=== PATIENT | male | born 1955 | race Caucasian/White ===

== ENCOUNTER 2016-05-19 11:39 | Outpatient (CLI) ==
[2012-09-24 07:31] VITALS: TEMP 98.2
[2012-09-24 08:03] VITALS: BP 150/77
[2016-05-19 12:30] LABS: HEMATOCRIT 33.2 % (42.0-52.0); HEMOGLOBIN 10.8 g/dl (14.0-18.0); MEAN CORPUSCULAR HEMOGLOBIN 30.4 pg (27.0-31.0); MEAN CORPUSCULAR HGB CONC 32.5 (31.8-35.4); MEAN CORPUSCULAR VOLUME 93.5 fl (80.0-94.0); RED BLOOD COUNT 3.55 10^6/ul (4.70-6.10); WHITE BLOOD COUNT 6.87 K/ul (4.2-10.2)
[2016-05-19 12:47] LABS: BILIRUBIN,URINE Negative (NEGATIVE); KETONES,URINE Negative (NEGATIVE); LEUKOCYTE ESTERASE ,URINE Negative (NEGATIVE); NITRITE,URINE Negative (NEGATIVE); PROTEIN,URINE Negative (NEGATIVE); URINE, BLOOD Negative (NEGATIVE)
[2016-05-19 12:52] LABS: ADD URINE MICROSCOPIC NO
[2016-05-19 13:03] LABS: ALBUMIN/GLOBULIN RATIO 1.14; ANION GAP 16.1; BILIRUBIN,TOTAL 0.49 mg/dL (0.00-1.20); BUN/CREATININE RATIO 20.35; CALCIUM 9.3 mg/dL (8.2-10.2); CREATININE 2.8 mg/dL (0.60-1.10); MAGNESIUM 2.1 mg/dL (1.7-2.2); PHOSPHORUS 3.8 mg/dL (2.5-4.9); POTASSIUM 4.1 mmol/L (3.5-5.1); TOTAL PROTEIN 7.5 g/dL (6.4-8.2); URIC ACID 6.5 mg/dL (2.6-7.2)
[2016-05-20 06:12] LABS: URINE CREATINE 55.1 mg/dL (Not Estab.)
[2016-05-20 10:32] LABS: CHOL/HDL RATIO 5.2 (4.5-6.4)
== END 2016-05-19 11:40 | disposition home or self-care (01) ==
LOC: LAB 11:39
PROVIDERS: ATTEND Internal Medicine Cardiovascular Disease
DX: E78.5 Hyperlipidemia, unspecified (principal); N18.4 Chronic kidney disease, stage 4 (severe); E55.9 Vitamin D deficiency, unspecified
CPT/HCPCS: 36415; 80053; 80061; 81001; 82306; 82570; 83735; 83970; 84100; 84156; 84550; 85027

== ENCOUNTER 2016-06-30 13:56 | Emergency (ER) ==
[2016-06-30 14:05] VITALS: BP 108/70; TEMP 100.1; BMI 44.8
[2016-06-30] MEDS ORDERED: SODIUM CHLORIDE 1,000 ML IV STA (14:13)
[2016-06-30] MEDS ORDERED: ZOFRAN 4 MG/2 ML IVP STA (14:13)
--- NOTE | 2016-06-30 14:15 | ED.PDOC ---
General ED Provider: Dr. LUCAS PINON JR Chief Complaint: Nausea/Vomiting Stated Complaint: states he was "talking out of his head" during nite--pt states saw dr matta recently and told him "he needed to take more fluid off"--2 days ago weight at dr office was 253--today at 261--has had head congestion-- blowing nose freq--with sl bloody dischage[End]color pale--states was lethargic earlier[End]100.1 71 20 88 108/70 nausea vomiting Time Seen by Physician: 14:15 Mode of Arrival: Walk-In Information Source: Patient Exam Limitations: No limitations Primary Care Provider: RANJITH MATTA Nursing and Triage Documentation Reviewed and Agree: No Review of Systems - Review Of Systems Constitutional: Reports: Malaise, Weakness Eyes: Reports: No symptoms Ears, Nose, Mouth, Throat: Reports: No symptoms Respiratory: Reports: Short of air Cardiac: Reports: No symptoms GI: Reports: No symptoms : Reports: No symptoms Musculoskeletal: Reports: No symptoms Skin: Reports: No symptoms Neurological: Reports: Cognitive dysfunction Endocrine: Reports: Other Hematologic/Lymphatic: Reports: Anemia All Other Systems: Other Past Medical History - Past Medical History Endocrine: Reports: DM 2, Hypothyroid Cardiovascular: Reports: CAD, [place], Hypertension, CHF Respiratory: Reports: None Hematological: Reports: Anemia Gastrointestinal: Reports: GERD Genitourinary: Reports: Kidney stones, CKD Neuro/Psych: Reports: None Musculoskeletal: Reports: None Cancer: Reports: None - Surgical History General Surgical History: Reports: CABG, Back Surgery - Family History Family History: Reports: Unknown - Social History Smoking Status: Never smoker Hx Substance Use: No Alcohol Screening: None Physical Exam - Physical Exam Appearance: Well-appearing Ill-appearing: Mild Pain Distress: Mild Eyes: ANDREA, EOMI, Conjunctiva clear ENT: Ears normal, Nose normal, Oropharynx normal Neck: Supple Respiratory: Airway patent, Breath sounds diminished, Rhonchi Cardiovascular: RRR, Pulses normal GI/: Soft, Nontender Musculoskeletal: Normal strength, ROM intact, Edema Skin: Warm, Dry Neurological: Sensation intact, Motor intact, Reflexes intact, Cranial nerves intact, Alert, Oriented Psychiatric: Affect appropriate, Mood appropriate Interpretation - Radiology Interpretation Radiology Interpretation By: Radiologist Radiology Results: Positive Exam Interpreted: CXR (subtle interstitial edema) - EKG Interpretation Time of EKG #1: 14:15 Rate: Normal Rhythm: Sinus ST Segment: Other (lateral t inversion old imi with inferior t inversion) Physician Notification - Case Discussed Physician Notified: dr matta here, alvarezjalen adorno at [address] larsen will call back Time of Notification: 15:36 (1545 dr autumn larsen calls back defer to renal) Physician Notified: jaclyn Time of Notification: 16:25 (accepts to scu) Critical Care Note - Critical Care Note Total Time (mins): 5 Course - Course Hematology/Chemistry: 06/30/16 14:35 06/30/16 14:35 Orders, Labs, Meds: Lab Review 06/30/16 06/30/16 06/30/16 14:13 14:35 17:00 WBC 6.65 RBC 3.09 L Hgb 9.6 L Hct 29.4 L MCV 95.1 H MCH 31.1 H MCHC 32.7 RDW Coeff of Yelena 14.7 Plt Count 138 L Immature Gran % (Auto) 0.5 Neut % (Auto) 81.9 Lymph % (Auto) 8.7 L [place] % (Auto) 8.4 Eos % (Auto) 0.2 Baso % (Auto) 0.3 Immature Gran # (Auto) 0.0 Neut # 5.5 Lymph # 0.6 [place] # 0.6 Eos # 0.0 Baso # 0.0 D-Dimer 2.31 Puncture Site Rb O2 Saturation 80.0 L ABG pH 7.329 L ABG pCO2 50.6 H ABG pO2 48.0 L* ABG HCO3 26.6 H ABG Total CO2 28 ABG Base Excess 1 FiO2 % 21.0 Sodium 133 L Potassium 5.2 H Chloride 94 L Carbon Dioxide 28 Anion Gap 16.2 BUN 100 H* Creatinine 4.66 H* Estimated GFR (MDRD) 13.00 BUN/Creatinine Ratio 21.45 Glucose 335 H Lactic Acid 8.5 Calcium 8.7 Total Bilirubin 1.27 H AST 109 H ALT 103 H Alkaline Phosphatase 406 H Total Creatine Kinase 96 Troponin I 0.6440 H* B-Natriuretic Peptide 1973 H Total Protein 7.2 Albumin 3.6 Globulin 3.6 Albumin/Globulin Ratio 1.00 Procalcitonin 0.47 Urine Color Yellow Urine Clarity Clear Urine pH 5.0 Ur Specific [place] 1.010 Urine Protein Negative Urine Glucose (UA) Negative Urine Ketones Negative Urine Blood Negative Urine Nitrite Negative Urine Bilirubin Negative Urine Urobilinogen 0.2 Ur Leukocyte Esterase Negative Orders Category Date Time Status ABG DRAW REQUEST Stat CARDIO 06/30/16 14:13 Completed EKG-(ED ONLY) Stat CARDIO 06/30/16 14:13 Completed ED POST EXCHANGE MANAGER APPLIED .ONCE EMERGENCY 06/30/16 14:13 Active ED IV/MEDIPORT/POWERPORT .ONCE EMERGENCY 06/30/16 14:13 Active ABG Stat LAB 06/30/16 14:13 Completed B-TYPE NATRIURETIC PEPTIDE Stat LAB 06/30/16 14:35 Completed BLOOD CULTURE Stat LAB 06/30/16 14:35 Received CBC W/ AUTO DIFF Stat LAB 06/30/16 14:35 Completed COMPREHENSIVE METABOLIC PANEL Stat LAB 06/30/16 14:35 Completed CREATINE KINASE Stat LAB 06/30/16 14:35 Completed D-DIMER Stat LAB 06/30/16 14:35 Completed LACTIC ACID Stat LAB 06/30/16 14:35 Completed PROCALCITONIN Stat LAB 06/30/16 14:35 Completed TROPONIN I Stat LAB 06/30/16 14:35 Completed UA [URINALYSIS C & S IF INDICATED] Stat LAB 06/30/16 17:00 Completed 0.9 % Sodium Chloride [Saline Flush] MEDS 06/30/16 14:13 Discontinued 1 syr IVF PRN PRN Aspirin [Aspirin Chewable] MEDS 06/30/16 16:21 Discontinued 324 mg PO ONCE STA Furosemide [Lasix] MEDS 06/30/16 14:51 Discontinued 100 mg IVP ONCE STA Methylprednisolone Sod Succ/Pf [Solu-Medrol 125 mg] MEDS 06/30/16 14:53 Discontinued 125 mg IVP ONCE STA Ondansetron HCl/Pf [Zofran 4 mg/2 ml] MEDS 06/30/16 14:13 Discontinued 4 mg IVP ONCE STA Sodium Chloride 0.9% [Sodium Chloride] 1,000 ml MEDS 06/30/16 14:13 Discontinued IV 100 mls/hr CHEST, 1V AP ONLY Stat RADS 06/30/16 14:13 Completed Medications Discontinued Medications Generic Name Dose Route Start Last Admin Trade Name Freq PRN Reason Stop Dose Admin Aspirin 324 mg 06/30/16 16:21 06/30/16 16:38 Aspirin Chewable PO 06/30/16 16:22 324 mg ONCE STA Administration Furosemide 100 mg 06/30/16 14:51 06/30/16 15:14 Lasix IVP 06/30/16 14:52 100 mg ONCE STA Administration Sodium Chloride 1,000 mls @ 100 mls/hr 06/30/16 14:13 06/30/16 16:38 Sodium Chloride IV 07/01/16 00:12 Not Given .Q10H STA Methylprednisolone Sodium Succinate 125 mg 06/30/16 14:53 06/30/16 15:11 Solu-Medrol 125 Mg IVP 06/30/16 14:54 125 mg ONCE STA Administration Ondansetron HCl 4 mg 06/30/16 14:13 06/30/16 14:53 Zofran 4 Mg/2 Ml IVP 06/30/16 14:14 4 mg ONCE STA Administration Sodium Chloride 1 syr 06/30/16 14:13 06/30/16 14:51 Saline Flush IVF 1 syr PRN PRN Administration To flush IV Vital Signs: Temp Pulse Resp BP Pulse Ox 06/30/16 13:56 100.1 F H 71 20 108/70 88 L Departure - Departure Time of Disposition: 16:25 Disposition: TSF SHORT-TRM HOSP Discharge Problem: Renal failure (ARF), acute on chronic, CHF (congestive heart failure), Myocardial infarction syndrome Condition: Fair Pt referred to PMD for follow-up: No Allergies/Adverse Reactions: Allergies bumetanide [From Bumex] Adverse Reaction (Verified 06/30/16 14:08) Penicillins Adverse Reaction (Verified 06/30/16 14:08) Home Medications: Ambulatory Orders Ferrous Sulfate 325 mg PO DAILY 09/21/12 Gabapentin [Neurontin] 600 mg PO BID 09/21/12 Hydrocodone/Acetaminophen [Lortab 5-500 Tablet] 5 - 325 each PO QID 09/21/12 Insulin Lispro [Humalog] 35 unit SQ DIRECTED PRN 09/21/12 Paricalcitol [Zemplar] 1 mcg PO DAILY 09/21/12 Allopurinol 300 mg PO DAILY 06/30/16 Aspirin 81 mg PO DAILY 06/30/16 Carvedilol 25 mg PO BID 06/30/16 Cholecalciferol (Vitamin D3) [Vitamin D3] 1,000 unit PO DAILY 06/30/16 Clopidogrel Bisulfate [Plavix] 1 tab PO DAILY 06/30/16 Insulin Glargine,Hum.rec.anlog [Lantus] 60 units SQ BID 06/30/16 Isosorbide Dinitrate 30 mg PO BID 06/30/16 Lorazepam 1 mg PO Q6HR PRN 06/30/16 Nitroglycerin [Nitrostat] 0.4 mg SL Q5MIN X 3 DOSES PRN 06/30/16 Ondansetron HCl [Zofran] 1 tab PO TID PRN 06/30/16 Tamsulosin HCl [Flomax] 1 cap PO BEDTIME 06/30/16 Torsemide [Demadex] 20 mg PO BID 06/30/16 Zonisamide 100 mg PO DAILY PRN 06/30/16
[2016-06-30 14:31] LABS: ABG PCO2 50.6 mmHg (35-45); ABG PH 7.329 (7.35-7.45)
[2016-06-30 14:32] LABS: ABG BASE EXCESS 1 (-2.0-2.0); ABG HCO3 26.6 (22.0-26.0); ABG TCO2 28 (22.0-28.0)
[2016-06-30] MEDS ORDERED: LASIX IVP STA (14:51)
[2016-06-30] MEDS ORDERED: SOLU-MEDROL 125 MG IVP STA (14:53)
[2016-06-30 14:54] LABS: BASOPHILS % (AUTO) 0.3 % (0.0-3.0); EOSINOPHILS % (AUTO) 0.2 % (0.0-7.0); HEMATOCRIT 29.4 % (42.0-52.0); HEMOGLOBIN 9.6 g/dl (14.0-18.0); IMMATURE GRANULOCYTE % (AUTO) 0.5 % (0.0-5.0); LYMPHOCYTES # (AUTO) 0.6 K/uL (0.60-3.4); LYMPHOCYTES % (AUTO) 8.7 (10.0-50.0); MEAN CORPUSCULAR HEMOGLOBIN 31.1 pg (27.0-31.0); MEAN CORPUSCULAR HGB CONC 32.7 (31.8-35.4); MEAN CORPUSCULAR VOLUME 95.1 fl (80.0-94.0); MONOCYTES # (AUTO) 0.6 K/uL (0.4-2.0); MONOCYTES % (AUTO) 8.4 (0-10); NEUTROPHILS # (AUTO) 5.5 K/ul (2.0-6.9); NEUTROPHILS % (AUTO) 81.9; PLATELET COUNT 138 10^3/uL (140-440); RED BLOOD COUNT 3.09 10^6/ul (4.70-6.10); WHITE BLOOD COUNT 6.65 K/ul (4.2-10.2)
--- NOTE | 2016-06-30 15:18 | DI ---
EXAM: CHEST FRONTAL VIEW HISTORY: Chest pain. COMPARISON: 05/18/2012 FINDINGS / IMPRESSION: Mild cardiomegaly is stable. Sternotomy wires are noted. There is no cons olidated pneumonia, visible pleural fluid or pneumothorax. Cannot exclude mild pulmonary vascular c ongestion and probable subtle interstitial edema, new or more noticeable since prior exam.
[2016-06-30 15:30] LABS: ALBUMIN 3.6 g/dL (3.4-5.0); ANION GAP 16.2; BILIRUBIN,TOTAL 1.27 mg/dL (0.00-1.20); BUN/CREATININE RATIO 21.45; CALCIUM 8.7 mg/dL (8.2-10.2); POTASSIUM 5.2 mmol/L (3.5-5.1); TOTAL PROTEIN 7.2 g/dL (5.8-8.1)
[2016-06-30 15:33] LABS: CREATININE 4.66 mg/dL (0.60-1.10); TROPONIN I 0.644 ng/ml (0.0000-0.4000)
[2016-06-30] MEDS ORDERED: ASPIRIN CHEWABLE PO STA (16:21)
[2016-06-30 17:09] LABS: BILIRUBIN,URINE Negative (NEGATIVE); KETONES,URINE Negative (NEGATIVE); LEUKOCYTE ESTERASE ,URINE Negative (NEGATIVE); NITRITE,URINE Negative (NEGATIVE); PROTEIN,URINE Negative (NEGATIVE); URINE, BLOOD Negative (NEGATIVE)
[2016-06-30 17:11] LABS: ADD URINE MICROSCOPIC NO
== END 2016-06-30 17:40 | disposition short-term general hospital (02) ==
LOC: ED 13:56
DX: N17.9 Acute kidney failure, unspecified (principal); N18.9 Chronic kidney disease, unspecified; I50.9 Heart failure, unspecified; I21.3 ST elevation (STEMI) myocardial infarction of unspecified site; R41.82 Altered mental status, unspecified; D64.9 Anemia, unspecified; I10 Essential (primary) hypertension; E11.9 Type 2 diabetes mellitus without complications; E03.9 Hypothyroidism, unspecified; I25.810 Atherosclerosis of coronary artery bypass graft(s) without angina pectoris; I25.2 Old myocardial infarction; Z79.899 Other long term (current) drug therapy
CPT/HCPCS: 36415; 80053; 81001; 82550; 82803; 83605; 83880; 84145; 84484; 85025; 85379; 87040; 93005; 93010; 96374; 96376; 99285

== ENCOUNTER 2016-06-30 17:43 | Outpatient (CLI) ==
[2012-09-24 07:31] VITALS: TEMP 98.2
[2016-06-30 14:05] VITALS: BMI 44.8
== END 2016-06-30 17:44 ==
LOC: AMBL 17:43
PROVIDERS: ATTEND Emergency Medicine
DX: N28.9 Disorder of kidney and ureter, unspecified (principal)

== ENCOUNTER 2016-07-15 12:55 | Outpatient (CLI) ==
[2012-09-24 07:31] VITALS: TEMP 98.2
--- NOTE | 2016-07-15 14:10 | CT ---
EXAM: CT of the abdomen pelvis without contrast History: Bilateral renal masses. Comparison: CT abdomen pelvis 12/16/2014 Technique: Multiplanar CT images through the abdomen pelvis were obtained without the administratio n of IV contrast Findings: Heart is enlarged. Interlobular septal thickening at the lung bases. Small right pleural effusion. Subsegmental atelectasis again seen within the left lower lung with nodularity. No acut e osseous abnormalities. Severe facet hypertrophy at L5-S1. Mesenteric edema and body wall edema. Trace ascites. Cholecystectomy clips. The intraventricular septum is visible suggesting anemia. Atherosclerotic vascular calcifications. No focal liver or sp lenic lesions. Bilateral indeterminate renal cortical masses again identified, most are about the sa me size except for medial and possibly solid right renal cortical mass measuring 3.7 cm and previou sly measured 3.3 cm. Bilateral perinephric and periureteral stranding. Prostate is prominent. Col onic diverticulosis. Fat-containing left inguinal hernia again noted. No perirectal inflammation. No free air. Appendix is not dilated or inflamed. No bladder wall thickening. Duodenal diverticul um again seen. No peripancreatic inflammation. Adrenal glands are unremarkable. Impression: 1. Probable solid right renal cortical mass and has increased in size could be malignant. Recommen d further evaluation with renal ultrasound. 2. Bilateral perinephric and periureteral stranding. Correlate with urinalysis. 3. Mesenteric edema and body wall edema. 4. Trace ascites. 5. Fat-containing left inguinal hernia. 6. Cardiomegaly with interstitial edema and small right pleural effusion. 7. Probable anemia. 8. Left lower lobe subsegmental atelectasis with nodularity requires follow-up to assure resolution . The 9. Duodenal diverticulum again noted.
== END 2016-07-15 12:56 | disposition home or self-care (01) ==
LOC: RAD 12:55
PROVIDERS: ATTEND Nurse Practitioner
DX: N28.89 Other specified disorders of kidney and ureter (principal)

== ENCOUNTER 2016-08-08 12:53 | Outpatient (CLI) ==
[2012-09-24 07:31] VITALS: TEMP 98.2
--- NOTE | 2016-08-08 13:47 | US ---
EXAM: Scrotal ultrasound HISTORY: Hydrocele, pain, swollen 3 weeks COMPARISON: None TECHNIQUE: Scrotal ultrasound was performed FINDINGS: Right: Right testicle measures 3.9 x 4.0 x 5.8 cm. Right testicle normal in echogenicity and vascu larity. Mild tubular ectasia of rete testes. Right epididymis appears normal. Small right hydroce le. Borderline right varicocele. The patient status post left orchiectomy. IMPRESSION: 1. Right: Mild tubular ectasia rete testes. Otherwise normal right testicle. Normal right epididym is. Small right hydrocele. Borderline right varicocele. 2. Left: Status post left orchiectomy
== END 2016-08-08 12:54 | disposition home or self-care (01) ==
LOC: RAD 12:53
PROVIDERS: ATTEND Internal Medicine
DX: N43.3 Hydrocele, unspecified (principal); N50.82 Scrotal pain

== ENCOUNTER 2016-08-17 14:22 | Outpatient (CLI) ==
[2012-09-24 07:31] VITALS: TEMP 98.2
[2016-08-17 14:42] LABS: BILIRUBIN,URINE Negative (NEGATIVE); KETONES,URINE Negative (NEGATIVE); LEUKOCYTE ESTERASE ,URINE Negative (NEGATIVE); NITRITE,URINE Negative (NEGATIVE); PH,URINE 6.5 (5-9); PROTEIN,URINE Negative (NEGATIVE); URINE, BLOOD Negative (NEGATIVE)
[2016-08-17 15:04] LABS: ALBUMIN 3.8 g/dL (3.4-5.0); ALBUMIN/GLOBULIN RATIO 1.27; ANION GAP 13.5; BILIRUBIN,TOTAL 0.81 mg/dL (0.00-1.20); BUN/CREATININE RATIO 12.81; CALCIUM 8.9 mg/dL (8.2-10.2); CREATININE 3.2 mg/dL (0.60-1.10); POTASSIUM 4.5 mmol/L (3.5-5.1); TOTAL PROTEIN 6.8 g/dL (5.8-8.1)
[2016-08-17 17:19] LABS: ADD URINE MICROSCOPIC NO
== END 2016-08-17 14:23 | disposition home or self-care (01) ==
LOC: LAB 14:22
PROVIDERS: ATTEND Internal Medicine
DX: Z87.448 Personal history of other diseases of urinary system (principal)
CPT/HCPCS: 36415; 80053; 81001

== ENCOUNTER 2016-09-05 08:29 | Outpatient (CLI) ==
[2012-09-24 07:31] VITALS: TEMP 98.2
--- NOTE | 2016-09-05 09:20 | US ---
EXAM: Renal ultrasound HISTORY: Renal cell cancer COMPARISON: Renal ultrasound 12/30/[address] abdomen pelvis 07/15/2016 TECHNIQUE: Sonographic evaluation of the kidneys was performed with limited Doppler evaluation. FINDINGS: The right kidney measures 12.3 x 5.9 x 4.7 cm with renal cortical thickness of 1.9 cm. T here is normal echogenicity and color Doppler flow. There is no visualized stone or hydronephrosis. There are three solid right renal lesions the largest measuring 3.8 x 4.1 x 3.6 cm. Additional elizabeth id appearing lesion measuring 2.7 x 2.7 x 1.9 cm and 1.8 x 2.5 x 2.4 cm are present. The left kidney measures 12.3 x 6.1 x 5.1 cm with renal cortical thickness of 1.8 cm. There is norm al echogenicity and color Doppler flow. No stone or hydronephrosis is identified. There are two elizabeth id appearing lesions measuring 1.6 x 2.4 x 1.7 cm in 2.1 x 1.7 x 2.4 cm. Limited evaluation of the urinary bladder is unremarkable. IMPRESSION: Bilateral renal masses which have increased in size in comparison to prior ultrasound consistent wit h progressive neoplasm.
== END 2016-09-05 08:30 | disposition home or self-care (01) ==
LOC: RAD 08:29
PROVIDERS: ATTEND Urology
DX: D41.01 Neoplasm of uncertain behavior of right kidney (principal)
CPT/HCPCS: 76770

== ENCOUNTER 2016-09-13 09:00 | Outpatient (CLI) ==
[2012-09-24 07:31] VITALS: TEMP 98.2
[2016-09-13 09:26] LABS: BASOPHILS % (AUTO) 0.3 % (0.0-3.0); EOSINOPHILS # (AUTO) 0.2 K/ul (0.0-0.7); EOSINOPHILS % (AUTO) 2.9 % (0.0-7.0); HEMATOCRIT 32.4 % (42.0-52.0); HEMOGLOBIN 10.1 g/dl (14.0-18.0); IMMATURE GRANULOCYTE % (AUTO) 0.2 % (0.0-5.0); LYMPHOCYTES # (AUTO) 0.8 K/uL (0.60-3.4); LYMPHOCYTES % (AUTO) 11.6 (10.0-50.0); MEAN CORPUSCULAR HEMOGLOBIN 29.3 pg (27.0-31.0); MEAN CORPUSCULAR HGB CONC 31.2 (31.8-35.4); MEAN CORPUSCULAR VOLUME 93.9 fl (80.0-94.0); MONOCYTES # (AUTO) 0.4 K/uL (0.4-2.0); MONOCYTES % (AUTO) 6.4 (0-10); NEUTROPHILS # (AUTO) 5.2 K/ul (2.0-6.9); NEUTROPHILS % (AUTO) 78.6; PLATELET COUNT 138 10^3/uL (140-440); RED BLOOD COUNT 3.45 10^6/ul (4.70-6.10); WHITE BLOOD COUNT 6.57 K/ul (4.2-10.2)
[2016-09-13 09:56] LABS: ALBUMIN 3.7 g/dL (3.4-5.0); ALBUMIN/GLOBULIN RATIO 1.16; BILIRUBIN,TOTAL 0.62 mg/dL (0.00-1.20); BUN/CREATININE RATIO 20.75; CALCIUM 9.2 mg/dL (8.2-10.2); CREATININE 3.18 mg/dL (0.60-1.10); TOTAL PROTEIN 6.9 g/dL (5.8-8.1)
== END 2016-09-13 09:01 | disposition home or self-care (01) ==
LOC: LAB 09:00
PROVIDERS: ATTEND Internal Medicine
DX: I50.9 Heart failure, unspecified (principal); N18.9 Chronic kidney disease, unspecified; I10 Essential (primary) hypertension; E11.9 Type 2 diabetes mellitus without complications
CPT/HCPCS: 36415; 80053; 82607; 83036; 84443; 85025

== ENCOUNTER 2016-09-28 15:16 | Outpatient (CLI) ==
[2012-09-24 07:31] VITALS: TEMP 98.2
--- NOTE | 2016-09-28 15:54 | US ---
EXAM: Testicular ultrasound HISTORY: Testicular pain for 2 months COMPARISON: Scrotal ultrasound 08/08/2016 TECHNIQUE: Sonographic and Doppler evaluation of the testicles were performed. FINDINGS: The right testicle measures 5.1 x 3.3 x 4.6 cm. The epididymis is normal in appearance. There is a dilated rete testes. There is no varicocele, hydrocele or mass. There is normal color D oppler flow without signs of torsion. The left testicle has been removed. IMPRESSION: Unremarkable sonographic ultrasound of the right testicle with dilated rete testes.
== END 2016-09-28 15:17 | disposition home or self-care (01) ==
LOC: RAD 15:16
PROVIDERS: ATTEND Nurse Practitioner Adult Health
DX: N50.819 Testicular pain, unspecified (principal)

== ENCOUNTER 2016-10-11 14:44 | Outpatient (CLI) ==
[2012-09-24 07:31] VITALS: TEMP 98.2
[2016-10-11 15:14] LABS: BASOPHILS % (AUTO) 0.5 % (0.0-3.0); EOSINOPHILS # (AUTO) 0.2 K/ul (0.0-0.7); EOSINOPHILS % (AUTO) 2.4 % (0.0-7.0); HEMATOCRIT 32.8 % (42.0-52.0); HEMOGLOBIN 10.4 g/dl (14.0-18.0); IMMATURE GRANULOCYTE % (AUTO) 0.4 % (0.0-5.0); LYMPHOCYTES # (AUTO) 0.8 K/uL (0.60-3.4); LYMPHOCYTES % (AUTO) 11.2 (10.0-50.0); MEAN CORPUSCULAR HEMOGLOBIN 29.5 pg (27.0-31.0); MEAN CORPUSCULAR HGB CONC 31.7 (31.8-35.4); MEAN CORPUSCULAR VOLUME 92.9 fl (80.0-94.0); MONOCYTES # (AUTO) 0.5 K/uL (0.4-2.0); MONOCYTES % (AUTO) 6.8 (0-10); NEUTROPHILS # (AUTO) 5.8 K/ul (2.0-6.9); NEUTROPHILS % (AUTO) 78.7; PLATELET COUNT 181 10^3/uL (140-440); RED BLOOD COUNT 3.53 10^6/ul (4.70-6.10); WHITE BLOOD COUNT 7.35 K/ul (4.2-10.2)
[2016-10-11 15:57] LABS: ALBUMIN 3.7 g/dL (3.4-5.0); ALBUMIN/GLOBULIN RATIO 1.32; ANION GAP 15.8; BILIRUBIN,TOTAL 0.7 mg/dL (0.00-1.20); BUN/CREATININE RATIO 15.33; CALCIUM 9.1 mg/dL (8.2-10.2); CHOL/HDL RATIO 4.7 (4.5-6.4); POTASSIUM 4.8 mmol/L (3.5-5.1); TOTAL PROTEIN 6.5 g/dL (5.8-8.1)
== END 2016-10-11 14:45 | disposition home or self-care (01) ==
LOC: LAB 14:44
PROVIDERS: ATTEND Internal Medicine
DX: E11.9 Type 2 diabetes mellitus without complications (principal); I10 Essential (primary) hypertension; E66.9 Obesity, unspecified; N18.9 Chronic kidney disease, unspecified
CPT/HCPCS: 36415; 80053; 80061; 83036; 84443; 85025

== ENCOUNTER 2016-12-23 11:27 | Outpatient (CLI) ==
[2012-09-24 07:31] VITALS: TEMP 98.2
[2016-12-23 11:51] LABS: HEMATOCRIT 34.1 % (42.0-52.0); HEMOGLOBIN 11.2 g/dl (14.0-18.0); MEAN CORPUSCULAR HEMOGLOBIN 29.8 pg (27.0-31.0); MEAN CORPUSCULAR HGB CONC 32.8 (31.8-35.4); MEAN CORPUSCULAR VOLUME 90.7 fl (80.0-94.0); RED BLOOD COUNT 3.76 10^6/ul (4.70-6.10); WHITE BLOOD COUNT 6.49 K/ul (4.2-10.2)
[2016-12-23 11:58] LABS: BILIRUBIN,URINE Negative (NEGATIVE); KETONES,URINE Negative (NEGATIVE); LEUKOCYTE ESTERASE ,URINE Negative (NEGATIVE); NITRITE,URINE Negative (NEGATIVE); PH,URINE 5.5 (5-9); PROTEIN,URINE Negative (NEGATIVE); URINE, BLOOD Negative (NEGATIVE)
[2016-12-23 12:11] LABS: ADD URINE MICROSCOPIC NO
[2016-12-23 12:27] LABS: ALBUMIN 3.8 g/dL (3.4-5.0); ALBUMIN/GLOBULIN RATIO 1.15; ANION GAP 15.9; BILIRUBIN,TOTAL 0.78 mg/dL (0.00-1.20); BUN/CREATININE RATIO 22.02; CALCIUM 9.5 mg/dL (8.2-10.2); CREATININE 2.77 mg/dL (0.60-1.10); PHOSPHORUS 4.2 mg/dL (2.3-3.7); POTASSIUM 3.9 mmol/L (3.5-5.1); TOTAL PROTEIN 7.1 g/dL (5.8-8.1); URIC ACID 4.9 mg/dL (2.6-7.2)
[2016-12-24 08:12] LABS: URINE CREATINE 56.9 mg/dL (Not Estab.)
== END 2016-12-23 11:28 | disposition home or self-care (01) ==
LOC: LAB 11:27
PROVIDERS: ATTEND Nurse Practitioner
DX: N18.4 Chronic kidney disease, stage 4 (severe) (principal); E55.9 Vitamin D deficiency, unspecified
CPT/HCPCS: 36415; 80053; 81001; 82306; 82570; 83735; 83970; 84100; 84156; 84550; 85027

== ENCOUNTER 2017-02-08 06:31 | Outpatient (CLI) ==
[2012-09-24 07:31] VITALS: TEMP 98.2
--- NOTE | 2017-02-09 10:52 | ECHO2D ---
Date of Exam: 02/08/17 Ordering Physician: RANJITH SOLIS Room #: OP Reason for Echo: SOB, CHF, HTN, CAD M-Mode Normal Adult Results LV Dimensions Normal Adult Results AoV Opening excursions >1.6 >1.6 LVEDD-base- 3.5-5.8 6.6 Ao root dimensions 2.0-3.7 3.7 LVESD-base- 3.1-4.6 L. Atrium dimensions 1.9-3.8 5.1 Post. Wall thickness 0.8-1.1 1.4 IV septum (thickness) 0.7-1.2 1.5 Post. Wall excursion 0.72-1.3 NORMAL Septal motion 0.2 Systolic motion R. Ventricular cavity 1.5-2.0 NORMAL LVEF 60% 30% Paradoxical septal wall motion MAYBE 2-D : AKINETIC TO HYPOKINETIC SEPTAL WALL, NORMAL VALVES, NO EFFUSION, NO THROMBUS, ENLARGED LEFT ATRIAL CAVITY, ENLARGED LEFT VENTRICLE CAVITY M-MODE: MV: NORMAL AV: NORMAL TV: NORMAL PV: CHAMBER SIZE: ENLARGED LEFT ATRIAL AND LEFT VENTRICLE CAVITIES WALL MOTION: AKINETIC SEPTUM PERICARDIUM: NORMAL INTERPRETATION: 1. LEFT VENTRICULAR HYPERTROPHY WITH ENLARGED LEFT ATRIAL CAVITY 2. ENLARGED LEFT VENTRICULAR CONTRACTILITY 3. HYPO TO AKINETIC SEPTUM WITH LEFT VENTRICULAR EJECTION FRACTION 30% MTDD
== END 2017-02-08 06:32 | disposition home or self-care (01) ==
LOC: CAR 06:31
PROVIDERS: ATTEND Internal Medicine
DX: R06.02 Shortness of breath (principal); I10 Essential (primary) hypertension; I25.10 Atherosclerotic heart disease of native coronary artery without angina pectoris; I50.9 Heart failure, unspecified
CPT/HCPCS: 93005; 93010

== ENCOUNTER 2017-06-26 10:37 | Outpatient (CLI) ==
[2012-09-24 07:31] VITALS: TEMP 98.2
== END 2017-06-26 10:38 | disposition home or self-care (01) ==
LOC: LAB 10:37
PROVIDERS: ATTEND Nurse Practitioner Family
DX: N18.4 Chronic kidney disease, stage 4 (severe) (principal); I10 Essential (primary) hypertension
CPT/HCPCS: 36415; 80053; 81001; 82043; 82306; 83970; 84550; 85027

== ENCOUNTER 2017-08-29 10:34 | Outpatient (CLI) ==
[2012-09-24 07:31] VITALS: TEMP 98.2
== END 2017-08-29 10:35 | disposition home or self-care (01) ==
LOC: LAB 10:34
PROVIDERS: ATTEND Internal Medicine
DX: E11.9 Type 2 diabetes mellitus without complications (principal); N18.9 Chronic kidney disease, unspecified; E78.5 Hyperlipidemia, unspecified; Z12.5 Encounter for screening for malignant neoplasm of prostate
CPT/HCPCS: 36415; 80053; 80061; 83036; 83880; 84443; 85025

== ENCOUNTER 2017-09-25 07:47 | Outpatient (CLI) ==
[2012-09-24 07:31] VITALS: TEMP 98.2
== END 2017-09-25 07:48 | disposition home or self-care (01) ==
LOC: LAB 07:47
PROVIDERS: ATTEND Nurse Practitioner
DX: N18.4 Chronic kidney disease, stage 4 (severe) (principal)
CPT/HCPCS: 36415; 80053; 81001; 82570; 83735; 84100; 84156; 84550; 85027

== ENCOUNTER 2017-11-10 12:57 | Outpatient (CLI) ==
[2012-09-24 07:31] VITALS: TEMP 98.2
== END 2017-11-10 12:58 | disposition home or self-care (01) ==
LOC: LAB 12:57
PROVIDERS: ATTEND Internal Medicine
DX: I25.10 Atherosclerotic heart disease of native coronary artery without angina pectoris (principal); I10 Essential (primary) hypertension; E11.9 Type 2 diabetes mellitus without complications; E78.5 Hyperlipidemia, unspecified; Z12.5 Encounter for screening for malignant neoplasm of prostate
CPT/HCPCS: 36415; 80053; 80061; 83036; 84443; 85025

== ENCOUNTER 2017-11-22 12:11 | Outpatient (CLI) ==
[2012-09-24 07:31] VITALS: TEMP 98.2
== END 2017-11-22 12:12 | disposition home or self-care (01) ==
LOC: LAB 12:11
PROVIDERS: ATTEND Nurse Practitioner
DX: N18.4 Chronic kidney disease, stage 4 (severe) (principal)
CPT/HCPCS: 36415; 80053; 82570; 82607; 82728; 82746; 83540; 83550; 83735; 83970; 84100; 84156; 85027

== ENCOUNTER 2018-01-01 11:51 | Outpatient (CLI) ==
[2012-09-24 07:31] VITALS: TEMP 98.2
== END 2018-01-01 11:52 | disposition home or self-care (01) ==
LOC: LAB 11:51
PROVIDERS: ATTEND Nurse Practitioner
DX: N18.4 Chronic kidney disease, stage 4 (severe) (principal)
CPT/HCPCS: 36415; 80053; 81001; 82570; 83735; 84100; 84156; 84550; 85027

== ENCOUNTER 2018-04-24 10:46 | Outpatient (CLI) ==
[2012-09-24 07:31] VITALS: TEMP 98.2
== END 2018-04-24 10:47 | disposition home or self-care (01) ==
LOC: LAB 10:46
PROVIDERS: ATTEND Nurse Practitioner
DX: D64.9 Anemia, unspecified (principal); I25.10 Atherosclerotic heart disease of native coronary artery without angina pectoris; I50.9 Heart failure, unspecified; I10 Essential (primary) hypertension; E11.9 Type 2 diabetes mellitus without complications; N18.4 Chronic kidney disease, stage 4 (severe); E55.9 Vitamin D deficiency, unspecified
CPT/HCPCS: 36415; 80053; 80061; 81001; 82306; 82570; 83036; 83735; 83970; 84100; 84156; 84439; 84443; 85025

== ENCOUNTER 2018-12-03 14:55 | Outpatient (CLI) ==
[2012-09-24 07:31] VITALS: TEMP 98.2
== END 2018-12-03 14:56 | disposition home or self-care (01) ==
LOC: LAB 14:55
PROVIDERS: ATTEND Internal Medicine
DX: E11.9 Type 2 diabetes mellitus without complications (principal); D64.9 Anemia, unspecified; I25.810 Atherosclerosis of coronary artery bypass graft(s) without angina pectoris; I50.9 Heart failure, unspecified; I10 Essential (primary) hypertension; R94.5 Abnormal results of liver function studies; E88.81 Metabolic syndrome and other insulin resistance; Z12.5 Encounter for screening for malignant neoplasm of prostate
CPT/HCPCS: 36415; 80053; 80061; 83036; 84443; 85025